=== PATIENT | female | born 1995 | race Caucasian/White ===

== ENCOUNTER 2023-07-21 15:13 | Outpatient (CLI) | payer OTHER, SELFPAY ==
[2023-07-21 15:41] VITALS: BP 143/85; PULSE 112; RESP 16; TEMP 36.3; O2SAT 97; BMI 45.4
[2023-07-21] MEDS: GOSERELIN ACETATE 3.6 MG IMPLANT 3.60000000000000009 MG SQ (15:53)
== END 2023-07-21 15:14 | disposition home or self-care (01) ==
DX: C50.911 Malignant neoplasm of unspecified site of right female breast (principal)
CPT/HCPCS: 96402; J9202

== ENCOUNTER 2023-08-18 15:32 | Outpatient (CLI) | payer OTHER, SELFPAY ==
[2023-08-18 15:42] VITALS: BP 142/92; PULSE 103; RESP 16; TEMP 36.9; O2SAT 100; BMI 47.2
[2023-08-18] MEDS: GOSERELIN ACETATE 3.6 MG IMPLANT 3.60000000000000009 MG SQ (15:44)
== END 2023-08-18 15:33 | disposition home or self-care (01) ==
PROVIDERS: Referring Provider Registered Nurse; Visit Provider Registered Nurse
DX: C50.911 Malignant neoplasm of unspecified site of right female breast (principal)
CPT/HCPCS: 96402; J9202

== ENCOUNTER 2023-09-15 15:28 | Outpatient (CLI) | payer OTHER, SELFPAY ==
[2023-09-15 15:36] VITALS: BP 148/95; PULSE 113; RESP 16; TEMP 36.4
[2023-09-15] MEDS: GOSERELIN ACETATE 3.6 MG IMPLANT 3.60000000000000009 MG SC (15:39)
== END 2023-09-15 15:29 | disposition home or self-care (01) ==
LOC: MEDOUTP 15:29
PROVIDERS: Referring Provider Registered Nurse; Visit Provider Registered Nurse
DX: C50.911 Malignant neoplasm of unspecified site of right female breast (principal)
CPT/HCPCS: 96402; J9202

== ENCOUNTER 2023-10-12 14:35 | Outpatient (CLI) | payer OTHER, SELFPAY ==
[2023-10-12 14:42] VITALS: BP 150/87; PULSE 98; RESP 16; TEMP 36.6; O2SAT 99
[2023-10-12] MEDS: GOSERELIN ACETATE 3.6 MG IMPLANT SC (14:49)
== END 2023-10-12 14:36 | disposition home or self-care (01) ==
PROVIDERS: Referring Provider Registered Nurse; Visit Provider Registered Nurse
DX: C50.911 Malignant neoplasm of unspecified site of right female breast (principal)
CPT/HCPCS: 96402; J9202

== ENCOUNTER 2023-11-10 15:05 | Outpatient (CLI) | payer OTHER, SELFPAY ==
[2023-11-10] MEDS: GOSERELIN ACETATE 3.6 MG IMPLANT SC (15:51)
[2023-11-10 15:57] LABS: Absolute Lymphocyte Count 1.21 X10^3/uL (0.83-4.51); Absolute Neutrophil Count 7.6 X10^3/uL (2.0-7.7); Basophil# 0.05 X10^3/uL; Basophil% 0.5 % (0-1); Eosinophil# 0.08 X10^3/uL; Eosinophils% 0.8 % (0-5); Hematocrit 37.7 % (37-47); Hemoglobin 11.7 g/dL (12.0-15.0); Lymphocyte # 1.21 X10^3/ul (0.83-4.51); Lymphocyte % 12.8 % (19-41); Mean Corpuscular Hgb 26.7 pg (27.0-32.0); Mean Corpuscular Volume 86.1 fL (81-99); Mean Platelet Vol. 8.9 fl (6.2-12.0); Monocyte# 0.55 X10^3/uL; Monocyte% 5.8 % (0-10); NRBC Flagged by Analyzer 0 % (0-5); Neutrophil # 7.56 X10^3/uL (2.7-7.7); Neutrophil % 79.9 % (47-70); Platelet Count 386 K/mm3 (150-450); RBC Distribution Width CV 15.3 % (11.6-14.6); RBC Distribution Width SD 48.1 fl (35.1-43.9); Red Blood Count 4.38 M/mm3 (4.2-5.4); White Blood Count 9.5 K/mm3 (4.4-11.0)
[2023-11-10 16:23] LABS: Hemoglobin A1c 5.6 % (3.8-5.6)
[2023-11-10 16:28] LABS: AST(SGOT) 17 U/L (15-37); Alanine Aminotransfer ALT/SGPT 26 U/L (13-56); Albumin, Serum 3.9 g/dL (3.2-5.0); Alkaline Phosphatase 144 U/L (45-117); Anion Gap 7 (5-15); BUN 10 mg/dL (7-18); BUN/Creat Ratio 13.5 RATIO (10-20); Calcium,Total 9.7 mg/dL (8.5-10.1); Chloride 104 mmol/L (98-107); Creatinine, Serum 0.74 mg/dL (0.55-1.02); EST Glomerular Filtration Rate 98 mL/min (>60); Est Glom Filt Rate - Afr Amer 119 mL/min (>60); Globulin 3.8 g/dL (2.2-4.2); Glucose 93 mg/dL (74-106); Potassium 3.7 mmol/L (3.5-5.1); Protein, Total 7.7 g/dL (6.4-8.2); Sodium Level 139 mmol/L (136-145); T4 Free Direct 0.91 ng/dL (0.76-1.46); Thyroid Stim Hormone (TSH) 1.85 uIU/mL (0.358-3.74)
[2023-11-16 21:07] LABS: HPV APTIMA, High Risk Negative (Negative)
== END 2023-11-10 15:06 | disposition home or self-care (01) ==
LOC: MEDOUTP 15:05
PROVIDERS: Nurse Practitioner Family; Referring Provider Registered Nurse; Visit Provider Registered Nurse
DX: C50.911 Malignant neoplasm of unspecified site of right female breast (principal); Z12.4 Encounter for screening for malignant neoplasm of cervix
CPT/HCPCS: 36591; 80053; 82306; 83036; 84439; 84443; 85025; 87624; 88175; 96402; A4216; G0145; J9202

== ENCOUNTER 2023-12-09 07:58 | Outpatient (CLI) | payer OTHER, SELFPAY ==
[2023-12-09 08:33] VITALS: BP 128/85; PULSE 89; RESP 16; TEMP 36.1; O2SAT 99; BMI 48.0
[2023-12-09 08:49] LABS: Cholesterol 189 mg/dL (200); High Density Lipoprotein 46 mg/dL; Triglycerides 154 mg/dL; Very Low Density Lipoprotein 31 mg/dL (5-40)
[2023-12-09] MEDS: GOSERELIN ACETATE 3.6 MG IMPLANT SC (08:50)
== END 2023-12-09 23:59 | disposition home or self-care (01) ==
LOC: MEDOUTP 07:58
PROVIDERS: Nurse Practitioner Family; Referring Provider Registered Nurse; Visit Provider Registered Nurse
DX: C50.911 Malignant neoplasm of unspecified site of right female breast (principal)
CPT/HCPCS: 36591; 80061; 96402; A4216; J9202

== ENCOUNTER 2024-01-06 14:57 | Outpatient (CLI) | payer OTHER, SELFPAY ==
[2024-01-06 15:12] VITALS: BP 140/92; PULSE 104; RESP 16; TEMP 36.5; O2SAT 97
[2024-01-06] MEDS: GOSERELIN ACETATE 3.6 MG IMPLANT SC (15:19)
== END 2024-01-06 23:59 | disposition home or self-care (01) ==
LOC: MEDOUTP 14:57
PROVIDERS: Referring Provider Registered Nurse; Visit Provider Registered Nurse
DX: C50.911 Malignant neoplasm of unspecified site of right female breast (principal)
CPT/HCPCS: 96402; J9202

== ENCOUNTER 2024-02-03 14:55 | Outpatient (CLI) | payer OTHER, SELFPAY ==
[2024-02-03 15:03] VITALS: BP 140/89; PULSE 99; RESP 16; TEMP 36.8; O2SAT 98; BMI 48.0
[2024-02-03] MEDS: GOSERELIN ACETATE 3.6 MG IMPLANT SC (15:07)
== END 2024-02-03 23:59 | disposition home or self-care (01) ==
LOC: MEDOUTP 14:56
PROVIDERS: Referring Provider Registered Nurse; Visit Provider Registered Nurse
DX: C50.911 Malignant neoplasm of unspecified site of right female breast (principal)
CPT/HCPCS: 96402; J9202

== ENCOUNTER 2024-02-29 14:37 | Outpatient (CLI) | payer OTHER, SELFPAY ==
[2024-02-29 14:46] VITALS: BP 154/95; PULSE 93; RESP 16; TEMP 36; O2SAT 97; BMI 48.0
[2024-02-29] MEDS: GOSERELIN ACETATE 3.6 MG IMPLANT SC (14:59)
== END 2024-02-29 23:59 | disposition home or self-care (01) ==
LOC: MEDOUTP 14:37
PROVIDERS: Referring Provider Registered Nurse; Visit Provider Registered Nurse
DX: C50.911 Malignant neoplasm of unspecified site of right female breast (principal)
CPT/HCPCS: 96402; J9202

== ENCOUNTER → 2024-03-22 | Outpatient (CLI) | payer OTHER, SELFPAY ==
--- NOTE | 2024-03-22 13:53 | EKG12_ITS ---
Test Reason : OBESITY, PRE MED Blood Pressure : / mmHG Vent. Rate : 103 BPM Atrial Rate : 103 BPM P-R Int : 130 ms QRS Dur : 090 ms QT Int : 338 ms P-R-T Axes : 040 008 019 degrees QTc Int : 442 ms Sinus tachycardia Otherwise normal ECG Confirmed by ADAM STERLING, HAFSA ([id number]), pictures editor TRISTEN ABRAHAM ([id number]) on 03/27/2024 2:05:10 PM Referred By: Luz Archer Confirmed By:HAFSA MEDINA MD
== END | disposition home or self-care (01) ==
PROVIDERS: Referring Provider Nurse Practitioner Family; Visit Provider Nurse Practitioner Family
DX: E66.9 Obesity, unspecified (principal)
CPT/HCPCS: 93005

== ENCOUNTER 2024-03-28 14:54 | Outpatient (CLI) | payer OTHER, SELFPAY ==
[2024-03-28] MEDS: GOSERELIN ACETATE 3.6 MG IMPLANT SC (15:08)
[2024-03-28 15:12] VITALS: BP 142/89; PULSE 108; RESP 16; TEMP 36; O2SAT 99; BMI 49.1
== END 2024-03-28 23:59 | disposition home or self-care (01) ==
LOC: MEDOUTP 14:54
PROVIDERS: Referring Provider Registered Nurse; Visit Provider Registered Nurse
DX: C50.911 Malignant neoplasm of unspecified site of right female breast (principal)
CPT/HCPCS: 96402; J9202

== ENCOUNTER 2024-04-26 10:34 | Outpatient (CLI) | payer OTHER, SELFPAY ==
[2024-04-26 10:58] VITALS: BP 130/88; PULSE 86; RESP 16; TEMP 36; O2SAT 97
[2024-04-26] MEDS: GOSERELIN ACETATE 3.6 MG IMPLANT SC (11:29)
[2024-04-26] MEDS: 0.9 % NaCl (Sterile) Posiflush 10 mL IV (11:35)
== END 2024-04-26 23:59 | disposition home or self-care (01) ==
LOC: MEDOUTP 10:34
PROVIDERS: Referring Provider Registered Nurse; Visit Provider Registered Nurse
DX: C50.911 Malignant neoplasm of unspecified site of right female breast (principal)
CPT/HCPCS: 96402; 96523; J9202

== ENCOUNTER → 2024-05-14 | Outpatient (CLI) | payer OTHER, SELFPAY | END | disposition home or self-care (01) | LOC: PSN 06:59 | PROVIDERS: Referring Provider Internal Medicine Cardiovascular Disease; Visit Provider Internal Medicine Cardiovascular Disease | DX: I10 Essential (primary) hypertension (principal); R00.0 Tachycardia, unspecified | CPT/HCPCS: 93225; 93226 ==

== ENCOUNTER 2024-05-24 15:40 | Outpatient (CLI) | payer OTHER, SELFPAY ==
[2024-05-24 16:00] VITALS: BP 147/97; PULSE 88; RESP 16; TEMP 36.4; O2SAT 100; BMI 48.4
[2024-05-24] MEDS: GOSERELIN ACETATE 3.6 MG IMPLANT SC (16:10)
== END 2024-05-24 23:59 | disposition home or self-care (01) ==
PROVIDERS: Referring Provider Registered Nurse; Visit Provider Registered Nurse
DX: C50.911 Malignant neoplasm of unspecified site of right female breast (principal)
CPT/HCPCS: 96402; 96523; A4216; J9202

== ENCOUNTER → 2024-06-06 | Outpatient (CLI) | payer OTHER, SELFPAY ==
--- NOTE | 2024-06-06 08:36 | EKG12_ITS ---
Test Reason : TACHY, NEW MED START Blood Pressure : */* mmHG Vent. Rate : 92 BPM Atrial Rate : 92 BPM P-R Int : 144 ms QRS Dur : 88 ms QT Int : 368 ms P-R-T Axes : 19 13 14 degrees QTcB Int : 455 ms Normal sinus rhythm Normal ECG Confirmed by Jose Walker ([id number]), brands editor TRISTEN ABRAHAM ([id number]) on 06/06/2024 2:14:47 PM Referred By: Amparo Mathews Confirmed By: Jose Walker
== END | disposition home or self-care (01) ==
LOC: PSN 08:35
PROVIDERS: Referring Provider Obstetrics & Gynecology; Visit Provider Obstetrics & Gynecology
DX: E66.89 Other obesity not elsewhere classified (principal)
CPT/HCPCS: 93005

== ENCOUNTER 2024-06-21 14:49 | Outpatient (CLI) | payer OTHER, SELFPAY ==
[2024-06-21 15:11] VITALS: BP 132/86; PULSE 87; RESP 16; TEMP 36.3; BMI 48.2
[2024-06-21] MEDS: GOSERELIN ACETATE 3.6 MG IMPLANT SC (15:16)
== END 2024-06-21 23:59 | disposition home or self-care (01) ==
LOC: MEDOUTP 14:50
PROVIDERS: Referring Provider Registered Nurse; Visit Provider Registered Nurse
DX: C50.911 Malignant neoplasm of unspecified site of right female breast (principal)
CPT/HCPCS: 96402; 96523; J9202

== ENCOUNTER 2024-07-19 15:34 | Outpatient (CLI) | payer OTHER, SELFPAY ==
[2024-07-19] MEDS: GOSERELIN ACETATE 3.6 MG IMPLANT SC (15:45)
[2024-07-19 15:52] VITALS: BP 125/81; PULSE 97; RESP 14; TEMP 36.3; O2SAT 100; BMI 47.7
== END 2024-07-19 23:59 | disposition home or self-care (01) ==
PROVIDERS: Referring Provider Registered Nurse; Visit Provider Registered Nurse
DX: C50.919 Malignant neoplasm of unspecified site of unspecified female breast (principal)

== ENCOUNTER 2024-08-16 15:47 | Outpatient (CLI) | payer OTHER, SELFPAY ==
[2024-08-16 15:56] VITALS: BP 133/88; PULSE 95; RESP 16; TEMP 35.6
[2024-08-16] MEDS: GOSERELIN ACETATE 3.6 MG IMPLANT SC (16:01)
== END 2024-08-16 23:59 | disposition home or self-care (01) ==
LOC: MEDOUTP 15:47
PROVIDERS: Referring Provider Registered Nurse; Visit Provider Registered Nurse
DX: C50.919 Malignant neoplasm of unspecified site of unspecified female breast (principal)
CPT/HCPCS: 96402; A4216; J9202

== ENCOUNTER 2024-09-12 14:26 | Outpatient (CLI) | payer OTHER, SELFPAY ==
[2024-09-12 14:31] VITALS: BP 135/98; PULSE 96; RESP 16; TEMP 35.6; O2SAT 98
[2024-09-12] MEDS: GOSERELIN ACETATE 3.6 MG IMPLANT SC (14:36)
== END 2024-09-12 23:59 | disposition home or self-care (01) ==
LOC: MEDOUTP 14:26
PROVIDERS: Referring Provider Registered Nurse; Visit Provider Registered Nurse
DX: C50.919 Malignant neoplasm of unspecified site of unspecified female breast (principal)
CPT/HCPCS: 96402; 96523; J9202

== ENCOUNTER 2024-10-09 14:22 | Outpatient (CLI) | payer OTHER, SELFPAY ==
[2024-10-09 14:25] VITALS: BP 142/81; PULSE 106; RESP 16; O2SAT 98
[2024-10-09] MEDS: GOSERELIN ACETATE 3.6 MG IMPLANT SC (14:37)
== END 2024-10-09 23:59 | disposition home or self-care (01) ==
LOC: MEDOUTP 14:22
PROVIDERS: Referring Provider Registered Nurse; Visit Provider Registered Nurse
DX: C50.919 Malignant neoplasm of unspecified site of unspecified female breast (principal)
CPT/HCPCS: 96402; J9202

== ENCOUNTER 2024-11-08 13:52 | Outpatient (CLI) | payer OTHER, SELFPAY ==
[2024-11-08 14:02] VITALS: BP 137/81; PULSE 105; RESP 16; TEMP 36.1; O2SAT 98; BMI 45.4
[2024-11-08] MEDS: GOSERELIN ACETATE 3.6 MG IMPLANT SC (14:03)
== END 2024-11-08 23:59 | disposition home or self-care (01) ==
LOC: MEDOUTP 13:52
PROVIDERS: Referring Provider Registered Nurse; Visit Provider Registered Nurse
DX: C50.919 Malignant neoplasm of unspecified site of unspecified female breast (principal)
CPT/HCPCS: 96402; J9202

== ENCOUNTER 2024-12-06 11:32 | Outpatient (CLI) | payer OTHER, SELFPAY ==
[2024-12-06 11:42] VITALS: BP 132/94; PULSE 95; RESP 16; TEMP 35.7; O2SAT 99; BMI 45.6
[2024-12-06] MEDS: GOSERELIN ACETATE 3.6 MG IMPLANT SC (11:55)
== END 2024-12-06 23:59 | disposition home or self-care (01) ==
LOC: MEDOUTP 11:32
PROVIDERS: Referring Provider Registered Nurse; Visit Provider Registered Nurse
DX: C50.919 Malignant neoplasm of unspecified site of unspecified female breast (principal)
CPT/HCPCS: 96402; J9202

== ENCOUNTER 2025-01-03 15:05 | Outpatient (CLI) | payer OTHER, SELFPAY ==
[2025-01-03] MEDS: GOSERELIN ACETATE 3.6 MG IMPLANT SC (15:17)
[2025-01-03 15:19] VITALS: BP 126/78; PULSE 87; RESP 16; O2SAT 99; BMI 45.6
== END 2025-01-03 23:59 | disposition home or self-care (01) ==
LOC: MEDOUTP 15:06
PROVIDERS: Referring Provider Registered Nurse; Visit Provider Registered Nurse
DX: C50.911 Malignant neoplasm of unspecified site of right female breast (principal)
CPT/HCPCS: 96402; J9202

== ENCOUNTER 2025-01-31 15:17 | Outpatient (CLI) | payer OTHER, SELFPAY ==
[2025-01-31 15:45] VITALS: BP 130/86; PULSE 102; RESP 16; TEMP 35.8; O2SAT 97; BMI 45.6
[2025-01-31] MEDS: GOSERELIN ACETATE 3.6 MG IMPLANT SC (15:48)
== END 2025-01-31 23:59 | disposition home or self-care (01) ==
LOC: MEDOUTP 15:17
PROVIDERS: Referring Provider Registered Nurse; Visit Provider Registered Nurse
DX: C50.911 Malignant neoplasm of unspecified site of right female breast (principal)
CPT/HCPCS: 96402; J9202

== ENCOUNTER 2025-02-28 14:34 | Outpatient (CLI) | payer OTHER, SELFPAY ==
[2025-02-28] MEDS: GOSERELIN ACETATE 3.6 MG IMPLANT SC (14:56)
[2025-02-28 15:00] VITALS: BP 138/84; PULSE 79; RESP 16; TEMP 36.1; O2SAT 93; BMI 44.9
== END 2025-02-28 23:59 | disposition home or self-care (01) ==
PROVIDERS: Referring Provider Registered Nurse; Visit Provider Registered Nurse
DX: C50.911 Malignant neoplasm of unspecified site of right female breast (principal)
CPT/HCPCS: 96402; J9202

== ENCOUNTER 2025-03-28 14:57 | Outpatient (CLI) | payer OTHER, SELFPAY ==
[2025-03-28 15:06] VITALS: BP 129/93; PULSE 78; RESP 16; TEMP 35.6; O2SAT 100
[2025-03-28] MEDS: GOSERELIN ACETATE 3.6 MG IMPLANT SC (15:14)
== END 2025-03-28 23:59 | disposition home or self-care (01) ==
LOC: MEDOUTP 14:58
PROVIDERS: Referring Provider Registered Nurse; Visit Provider Registered Nurse
DX: C50.911 Malignant neoplasm of unspecified site of right female breast (principal)
CPT/HCPCS: 96402; J9202

== ENCOUNTER 2025-04-25 15:00 | Outpatient (CLI) | payer OTHER, SELFPAY ==
[2025-04-25 15:15] VITALS: BP 123/75; PULSE 86; RESP 16; TEMP 35.8
[2025-04-25] MEDS: GOSERELIN ACETATE 3.6 MG IMPLANT SC (15:23)
== END 2025-04-25 23:59 | disposition home or self-care (01) ==
LOC: MEDOUTP 15:00
PROVIDERS: Referring Provider Registered Nurse; Visit Provider Registered Nurse
DX: C50.911 Malignant neoplasm of unspecified site of right female breast (principal)
CPT/HCPCS: 96401; J9202

== ENCOUNTER 2025-05-23 15:01 | Outpatient (CLI) | payer OTHER, SELFPAY ==
[2025-05-23 15:10] VITALS: BP 137/93; PULSE 86; RESP 16; TEMP 36.3; O2SAT 96
[2025-05-23] MEDS: GOSERELIN ACETATE 3.6 MG IMPLANT SC (15:13)
== END 2025-05-23 23:59 | disposition home or self-care (01) ==
LOC: MEDOUTP 15:02
PROVIDERS: Referring Provider Registered Nurse; Visit Provider Registered Nurse
DX: C50.911 Malignant neoplasm of unspecified site of right female breast (principal)
CPT/HCPCS: 96401; J9202

== ENCOUNTER → 2025-05-30 | Outpatient (CLI) | payer OTHER, SELFPAY ==
[2025-05-30 10:38] LABS: Hematocrit 39.1 % (37-47); Hemoglobin 12.2 g/dL (12.0-15.0); Immature Granulocytes Count 0.050 X10^3/uL (0.0-0.0); Mean Corp Hgb Conc 31.2 g/dL (32-36); Mean Corpuscular Volume 86.1 fL (81-99); Mean Platelet Vol. 9.2 fl (6.2-12.0); NRBC Flagged by Analyzer 0 % (0-5); Platelet Count 434 K/mm3 (150-450); RBC Distribution Width CV 14.6 % (11.6-14.6); RBC Distribution Width SD 46.4 fl (35.1-43.9); Red Blood Count 4.54 M/mm3 (4.2-5.4); White Blood Count 8.5 K/mm3 (4.4-11.0)
[2025-05-30 11:17] LABS: AST(SGOT) 20 U/L (<=31); Alanine Aminotransfer ALT/SGPT 25 U/L (<=34); Albumin, Serum 4.4 g/dL (3.5-5.0); Alkaline Phosphatase 166 U/L (35-104); Anion Gap 11 (5-15); BUN 14 mg/dL (4-19); BUN/Creat Ratio 21.0 RATIO (10-20); Calcium,Total 10.1 mg/dL (7.6-11.0); Carbon Dioxide 24.7 mmol/L (21.0-32.0); Chloride 104 mmol/L (98-108); Cholesterol 174 mg/dL (<=200); Follicle Stimulating Hormone 6.2 mIU/mL; Globulin 3.4 g/dL (2.2-4.2); Glucose 96 mg/dL (70-99); Low Density Lipoprotein Calc. 104 mg/dL; Potassium 4.3 mmol/L (3.3-5.1); Triglycerides 103 mg/dL; Very Low Density Lipoprotein 21 mg/dL (5-40); cholesterol:hdl ratio screen 3.38
== END | disposition home or self-care (01) ==
PROVIDERS: Referring Provider Nurse Practitioner Family; Visit Provider Nurse Practitioner Family
DX: C50 Malignant neoplasm of breast (principal); C50.911 Malignant neoplasm of unspecified site of right female breast; Z17.31 Human epidermal growth factor receptor 2 positive status; E66.89 Other obesity not elsewhere classified
CPT/HCPCS: 36415; 80053; 80061; 82670; 83001; 83002; 84443; 85025

== ENCOUNTER 2025-06-24 15:25 | Outpatient (CLI) | payer OTHER, SELFPAY ==
[2025-06-24 15:38] VITALS: BP 138/98; PULSE 91; RESP 16; TEMP 36.1; O2SAT 100
[2025-06-24] MEDS: GOSERELIN ACETATE 3.6 MG IMPLANT SC (15:43)
== END 2025-06-24 23:59 | disposition home or self-care (01) ==
LOC: MEDOUTP 15:25
PROVIDERS: Referring Provider Registered Nurse; Visit Provider Registered Nurse
DX: C50 Malignant neoplasm of breast (principal); C50.911 Malignant neoplasm of unspecified site of right female breast; Z17.31 Human epidermal growth factor receptor 2 positive status
CPT/HCPCS: 96401; J9202